=== PATIENT | female | born 1950 | race Two or more races ===

== ENCOUNTER 2019-08-02 14:08 | Emergency (ER) | payer OTHER ==
[~2019-08-02] VITALS: Ht 157.5 cm; Wt 79.4 kg
[2019-08-02] MEDS ORDERED: COZAAR100 MG (14:29)
[2019-08-02] MEDS ORDERED: SYMBICORT 16010.2 GM (14:30)
[2019-08-02] MEDS ORDERED: THEOPHYLLINE A100 MG (14:30)
[2019-08-02] MEDS ORDERED: ALLERGY RELIE15.8 ML (14:31)
[2019-08-02] MEDS ORDERED: PROAIR HFA8.5 GM (14:32)
[2019-08-02] MEDS ORDERED: MONTELUKAST SODI4 M1 (14:33)
== END 2019-08-02 18:30 | disposition home or self-care (01) ==
LOC: ER 14:08
DX: R06.02 Shortness of breath (principal); B96.0 Mycoplasma pneumoniae [M. pneumoniae] as the cause of diseases classified elsewhere

== ENCOUNTER 2020-06-16 13:35 | Outpatient (CLI) | payer OTHER ==
[~2020-06-16 13:35] MED LIST: ALLERGY RELIE15.8 ML; COZAAR100 MG; MONTELUKAST SODI4 M1; PROAIR HFA8.5 GM; SYMBICORT 16010.2 GM; THEOPHYLLINE A100 MG
== END 2020-06-16 15:31 | disposition home or self-care (01) ==
LOC: ASH CLINIC 13:35
PROVIDERS: ATTEND Internal Medicine Pulmonary Disease
DX: Z23 Encounter for immunization (principal); U07.1 COVID-19

== ENCOUNTER 2020-11-23 07:28 | Day surgery (SDC) | payer OTHER ==
[~2020-11-23 07:28] MED LIST changes: +ADVAIR PO; +DAILY VALUE1 EACH PO; +FAMOTIDINE40 MG PO; +SIMVAST PO; +SIMVASTATIN20 MG PO; +VITAMIN C PO; +VITAMIN D PO
== END 2020-11-23 10:50 | disposition home or self-care (01) ==
LOC: CIR.AMB 07:28
PROVIDERS: ATTEND Specialist
DX: D17.1 Benign lipomatous neoplasm of skin and subcutaneous tissue of trunk (principal)

== ENCOUNTER 2022-05-27 07:30 | Inpatient (IN) | payer OTHER ==
[~2022-05-27] VITALS: Ht 157.5 cm; Wt 80.7 kg
[2022-05-27] MEDS ORDERED: HYDRODIURIL12.5 MG PO (08:53)
[2022-05-27] MEDS ORDERED: SYMBICORT 16010.2 GM IH (08:53)
[2022-05-27] MEDS ORDERED: THEO-24100 MG PO (08:53)
[2022-06-05] MEDS ORDERED: LOSARTAN-HCTZ1 EAC2 (09:54)
[2022-06-05] MEDS ORDERED: ATORVASTATIN CA20 MG (09:54)
[2022-06-05] MEDS ORDERED: VITAMIN D310 MC4 (09:55)
[2022-06-05] MEDS ORDERED: VITAMIN C100 MG (09:55)
== END 2022-06-06 14:54 | DRG 470 ==
LOC: O/R 06-04 06:37 → SURH 06-04 07:30 → SURG 06-04 17:00 → SURH 06-04 17:00 → SURG 06-06 14:54
PROVIDERS: ADMIT Orthopaedic Surgery; ATTEND Orthopaedic Surgery
PROC: 0SRC0JZ Replacement of Right Knee Joint with Synthetic Substitute, Open Approach (ICD-10-PCS; principal; 2022-06-04 17:00)
DX: M17.11 Unilateral primary osteoarthritis, right knee (principal); M85.861 Other specified disorders of bone density and structure, right lower leg

== ENCOUNTER → 2023-11-25 | Outpatient (CLI) | payer OTHER ==
[~2023-11-25] MED LIST changes: +ATORVASTATIN CA20 MG; +HYDRODIURIL12.5 MG PO; +LOSARTAN-HCTZ1 EAC2; +SYMBICORT 16010.2 GM IH; +THEO-24100 MG PO; +VITAMIN C100 MG; +VITAMIN D310 MC4
== END | disposition home or self-care (01) ==
LOC: RAD 11:11
PROVIDERS: ATTEND Physical Medicine & Rehabilitation
DX: M17.12 Unilateral primary osteoarthritis, left knee (principal)

== ENCOUNTER 2024-08-18 10:43 | Outpatient (CLI) | payer OTHER | END 2024-08-18 10:44 | disposition home or self-care (01) | LOC: NUCLEAR 10:43 | PROVIDERS: ATTEND Physical Medicine & Rehabilitation | DX: M81.0 Age-related osteoporosis without current pathological fracture (principal) ==

== ENCOUNTER 2024-12-27 10:08 | Outpatient (CLI) | payer OTHER | END 2024-12-27 10:13 | disposition home or self-care (01) | LOC: RAD 10:08 | PROVIDERS: ATTEND Physical Medicine & Rehabilitation | DX: M17.12 Unilateral primary osteoarthritis, left knee (principal); R06.02 Shortness of breath ==